=== PATIENT | female | born 1995 | race African-American/Black ===

== ENCOUNTER 2020-12-13 09:59 | Emergency (ER) | payer SELFPAY ==
[~2020-12-13] VITALS: Ht 172.7 cm; Wt 73.0 kg
[2020-12-13] MEDS ORDERED: ONDANSETRON 2MG/ML, 2ML IVPush ONE (10:30)
--- NOTE | 2020-12-13 10:40 | NUR ---
assumed care of pt. pt altered and moaning. pt laying with her mouth open, repeatedly spitting. per 1st pressman on web press, pt walked into lobby and got into a WC and then was unable to answer questions pt is warm and dry. malodorous and also smells of marijuana pt has no obvious injuries noted. no resp. distress pt FLORES. pupils pinpoint. Dr. Smith has been to bedside for eval
--- NOTE | 2020-12-13 10:46 | NUR ---
EKG has been to bedside CXR at bedside
--- NOTE | 2020-12-13 10:50 | NUR ---
pt answers some questions, deneis ETOH when patient asked if she is currently using any illicit drugs, pt states "No, I did not take any drugs" no family at bedside. warm blankets given
--- NOTE | 2020-12-13 10:50 | NUR ---
pt HOB elevated for safety
[2020-12-13 10:56] LABS: BASOPHILS % (AUTO) 0 % (0-1); EOSINOPHILS % (AUTO) 1 % (1-7); LYMPHOCYTES % (AUTO) 27 % (22-44); MD NO; MEAN CORPUSCULAR HEMOGLOBIN 31.9 pg (27.0-34.8); MEAN CORPUSCULAR HGB CONC 33.7 g/dL (32.4-35.8); MEAN PLATELET VOLUME 7.2 fL (7.4-10.4); MONOCYTES % (AUTO) 7 % (2-9); NEUTROPHILS % (AUTO) 65 % (42-75); PLATELET COUNT 225 x10^3/uL (130-400); RED BLOOD COUNT 4.79 x10^6/uL (3.82-5.3)
[2020-12-13 11:04] LABS: ALANINE AMINOTRANSFERASE 22 U/L (12-78); ALBUMIN 4.1 g/dL (3.4-5.0); ANION GAP 8 mmol/L (5-15); CALCIUM 9.8 mg/dL (8.5-10.1); CHLORIDE 113 mmol/L (98-107); CREATININE 1.12 mg/dL (0.55-1.02); SALICYLATE LEVEL 2.8 mg/dL (2.8-20.0)
[2020-12-13 11:10] LABS: ALKALINE PHOSPHATASE 83 U/L (45-117); BILIRUBIN,TOTAL 0.5 mg/dL (0.2-1.0); TOTAL PROTEIN 7.9 g/dL (6.4-8.2)
[2020-12-13] MEDS ORDERED: ONDANSETRON 2MG/ML, 2ML ONE (11:18)
[2020-12-13] MEDS ORDERED: PLEASE ENTER HEIGHT AND WEIGHT MC SCH (11:30)
[2020-12-13] MEDS ORDERED: POTASSIUM CHLORIDE 20 MEQ PACKET PO ONE (11:30)
[2020-12-13] MEDS ORDERED: PLEASE ENTER ALLERGIES MC SCH (11:30)
--- NOTE | 2020-12-13 11:45 | NUR ---
pt has been cathed for UA/DOA. pt is currently menstruating. pt cleaned. during cath, pt urinated on bed and linens. pt cleaned and razia care given. fresh linens applied. pad placed for menstruation pt has repeatedly spit on the floor wamr blankets given per pt request. pt continues moaning, but follows commands
--- NOTE | 2020-12-13 11:50 | NUR ---
pt HOB elevated for safety
[2020-12-13 12:12] LABS: MICROSCOPIC AUTO
--- NOTE | 2020-12-13 12:14 | NUR ---
report to Terrell MASON for lunch
[2020-12-13 12:21] LABS: AMPHETAMINE SCREEN, URINE Negative (Negative); BARBITURATE SCREEN, URINE Negative (Negative); BENZODIAZEPINE SCREEN, URINE Negative (Negative); CANNABINOID SCREEN, URINE Positive (Negative); COCAINE SCREEN, URINE Negative (Negative); METHADONE SCREEN, URINE Negative (Negative); OPIATE SCREEN, URINE Negative (Negative)
--- NOTE | 2020-12-13 13:00 | NUR ---
Dr Smith has been to [facility] for recheck. pt to be D/C pt has conintued to spit on the floor while kim has been here pt now yelling at this RN that she does nto want to be discharged. attempting to explain to pt that she has been evaluated by a physician and that she has been medically cleared. pt states "You haven't treated me! You haven't done anything for me!" pt education given regarding lab draw, urine sample, cardiac monitoring, VS monitoring as well as medication administration with zofran for nausea. pt states "I puked it up! you need to give me more! I want pain medicine!" attempted to offer pt cab voucher, pt refuses
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
[2020-12-13 13:46] VITALS: BP 110/65
== END 2020-12-13 13:54 | disposition home or self-care (01) ==
LOC: EDBD 09:59 → ED 10:35
DX: R10.84 Generalized abdominal pain (principal); R11.2 Nausea with vomiting, unspecified; R41.82 Altered mental status, unspecified; E87.6 Hypokalemia; R00.1 Bradycardia, unspecified
CPT/HCPCS: 71045; 80053; 80299; 80307; 80320; 81001; 82140; 82962; 84703; 85025; 87086; 93005; 96374; 99285; J2405; 80329; G0480